=== PATIENT | female | born 1960 | race Two or more races ===

== ENCOUNTER 2017-04-06 10:52 | Emergency (ER) | payer MEDICAID ==
[~2017-04-06] VITALS: Ht 165.1 cm; Wt 116.6 kg
[2017-04-06 11:42] LABS: Basophils # (auto) 0 uL; Basophils % (auto) 0.3 % (0.0-2.0); Eosinophils # (auto) 0 uL; Eosinophils % (auto) 0.4 % (0.0-7.0); Hematocrit 43.2 % (36.0-46.0); Hemoglobin 14.9 g/dL (12.2-16.2); Lymphocytes # (auto) 0.8 uL; Lymphocytes % (auto) 16.8 % (10.0-50.0); Mean Corpuscular Hemoglobin 30.9 pg (28.0-32.0); Mean Corpuscular Hgb Conc. 34.4 g/dL (32.0-36.0); Mean Corpuscular Volume 89.6 fL (80.0-100.0); Mean Platelet Volume 8.7 fL (7.4-10.4); Monocytes # (auto) 0.5 uL; Monocytes % (auto) 11.6 % (0.0-12.0); Neutrophils # (auto) 3.3 uL; Neutrophils % (auto) 70.9 % (37.0-80.0); Platelet Count (auto) 259 10^3/uL (140-450); White Blood Cell 4.7 10^3/uL (4.4-10.8)
[2017-04-06 12:09] LABS: Albumin 3.3 g/dL (3.4-5.0); Alkaline Phosphatase 82 U/L (45-117); Anion Gap 6 (5-15); Aspartate Aminotransferase 29 U/L (15-37); BUN/Creatinine Ratio 13.9; Blood Urea Nitrogen 10 mg/dL (7-18); Carbon Dioxide 28 mmol/L (21-32); Chloride 104 mmol/L (98-107); GFR African American 108 mL/min; GFR Non-African American 89 mL/min; Glucose 92 mg/dL (74-106); Potassium 3.6 mmol/L (3.5-5.1); Sodium 138 mmol/L (136-145); Total Protein 7.8 g/dL (6.4-8.2)
[2017-04-06 13:10] LABS: Urine Bilirubin Negative (Negative); Urine Blood Negative /uL (Negative); Urine Color Yellow (Yellow); Urine Glucose Normal (Normal); Urine Ketone Negative (Negative); Urine Mucus FEW (None Seen); Urine Nitrite Negative (Negative); Urine RBC 7 /hpf (0 - 4); Urine Squamous Epithelial Cell FEW /hpf (<5)
[2017-04-06 13:26] VITALS: BP 150/83
[2017-04-06] MEDS ORDERED: ONDANSETRON ODT 4 MG TAB PO ONE (13:30)
== END 2017-04-06 14:10 | disposition home or self-care (01) ==
LOC: ER 10:52
DX: M25.552 Pain in left hip (principal); M25.512 Pain in left shoulder; R11.10 Vomiting, unspecified; M19.90 Unspecified osteoarthritis, unspecified site; I10 Essential (primary) hypertension; E03.9 Hypothyroidism, unspecified; Z87.440 Personal history of urinary (tract) infections; E66.01 Morbid (severe) obesity due to excess calories; Z68.41 Body mass index [BMI] 40.0-44.9, adult
CPT/HCPCS: 36415; 71020; 80053; 81001; 83690; 84484; 85025; 93005; 99285; Q0162

== ENCOUNTER 2023-10-14 08:32 | Emergency (ER) | payer MEDICAID, OTHER ==
[~2023-10-14] VITALS: Ht 162.6 cm; Wt 116.7 kg
[2023-10-14 09:11] LABS: Basophils # (auto) 0.1 10 ^3/uL (0-0.2); Basophils % (auto) 0.6 % (0.0-2.0); Eosinophils # (auto) 0 10 ^3/uL (0-0.8); Eosinophils % (auto) 0.1 % (0.0-7.0); Hematocrit 43.4 % (36.0-46.0); Hemoglobin 14.5 g/dL (12.2-16.2); Lymphocytes % (auto) 8.9 % (10.0-50.0); Mean Corpuscular Hgb Conc. 33.4 g/dL (32.0-36.0); Mean Corpuscular Volume 89.8 fL (80.0-100.0); Monocytes # (auto) 0.9 10 ^3/uL (0-1.3); Monocytes % (auto) 7.8 % (0.0-12.0); Neutrophils # (auto) 9.3 10 ^3/uL (1.6-8.6); Neutrophils % (auto) 82.6 % (37.0-80.0); Nucleated Red Blood Cells % 0.1 %; Red Blood Cells 4.84 10^6/uL (4.0-5.20); Red Cell Distribution Width 15.2 % (11.8-14.3); White Blood Cell 11.2 10^3/uL (4.4-10.8)
[2023-10-14 09:36] LABS: Alanine Aminotransferase 15 U/L (7-40); Albumin 4.5 g/dL (3.2-4.8); Alkaline Phosphatase 82 U/L (46-116); Anion Gap 5 (5-15); Aspartate Aminotransferase 18 U/L (13-40); BUN/Creatinine Ratio 9.3 (10.0-20.0); Bilirubin, Total 2.3 mg/dL (0.2-1.0); Blood Urea Nitrogen 9 mg/dL (9-23); Calcium 8.9 mg/dL (8.7-10.4); Carbon Dioxide 30 mmol/L (20-30); Chloride 100 mmol/L (98-107); Glucose 127 mg/dL (74-106); Potassium 3.8 mmol/L (3.5-5.1); Sodium 135 mmol/L (136-145); Total Protein 7.7 g/dL (5.7-8.2)
[2023-10-14 09:57] LABS: Urine Bacteria NONE SEEN /hpf (None Seen); Urine Blood 1+ /uL (Negative); Urine Budding Yeast FEW /hpf (None Seen); Urine Clarity HAZY (Clear); Urine Color Yellow (Yellow); Urine Mucus FEW (None Seen); Urine Protein, UAD TRACE (Negative); Urine Specific Gravity 1.016 (1.001-1.035); Urine Urobilinogen Normal (Negative); Urine WBC 51 /hpf (0 - 5)
[2023-10-14] MEDS ORDERED: SODIUM CHLORIDE 0.9% 1,000 ML IV ONE (11:00)
[2023-10-14] MEDS ORDERED: cefTRIAXone 1GM/50ML D5W 50 ML IV ONE (11:00)
[2023-10-14] MEDS ORDERED: HYDROcodone-ACET 7.5/325MG TAB PO ONE (12:00)
[2023-10-14] MEDS ORDERED: PROCHLORPERAZINE EDISYLATE 5 MG/ML 2ML VIAL IV ONE (12:00)
[2023-10-14] MEDS ORDERED: HYDR-4902 PO (12:46)
[2023-10-14] MEDS ORDERED: BACDST PO (12:46)
[2023-10-14] MEDS ORDERED: METO-281 PO (12:46)
[2023-10-14 12:58] VITALS: PULSE 83; RESP 20; O2SAT 95
[2023-10-14 13:39] VITALS: BP 152/68; PULSE 92; RESP 20; TEMP 98.2; O2SAT 95
== END 2023-10-14 13:46 | disposition home or self-care (01) ==
LOC: ER 08:32
DX: N12 Tubulo-interstitial nephritis, not specified as acute or chronic (principal); R51.9 Headache, unspecified; R53.1 Weakness; I10 Essential (primary) hypertension; Z79.899 Other long term (current) drug therapy
CPT/HCPCS: 36415; 71046; 80053; 81001; 84484; 85025; 93005; 96361; 96365; 96375; 99285; J0696; J0780; J7030

== ENCOUNTER 2024-10-19 10:17 | Emergency (ER) | payer MEDICAID, OTHER ==
[~2024-10-19] VITALS: Ht 165.1 cm; Wt 109.8 kg
[~2024-10-19 10:17] MED LIST: BACDST PO; HYDR-4902 PO; METO-281 PO
[2024-10-19] MEDS: KETOROLAC TROMETH 60MG/2ML VIAL IM ONE (11:32)
[2024-10-19] MEDS: METHOCARBAMOL 500 MG TAB PO ONE (11:33)
[2024-10-19] MEDS: HYDROcodone-ACET 5/325MG TAB PO ONE (11:34)
[2024-10-19] MEDS: ONDANSETRON ODT 4 MG TAB PO ONE (11:35)
[2024-10-19 11:45] LABS: Basophils # (auto) 0.1 10 ^3/uL (0-0.2); Basophils % (auto) 0.6 % (0.0-2.0); Eosinophils # (auto) 0.1 10 ^3/uL (0-0.8); Hematocrit 41.9 % (36.0-46.0); Hemoglobin 14.7 g/dL (12.2-16.2); Lymphocytes # (auto) 1.9 10 ^3/uL (0.4-5.4); Lymphocytes % (auto) 18.3 % (10.0-50.0); Mean Corpuscular Hemoglobin 31.8 pg (28.0-32.0); Mean Corpuscular Hgb Conc. 34.9 g/dL (32.0-36.0); Monocytes # (auto) 0.8 10 ^3/uL (0-1.3); Monocytes % (auto) 7.7 % (0.0-12.0); Neutrophils # (auto) 7.5 10 ^3/uL (1.6-8.6); Neutrophils % (auto) 72.4 % (37.0-80.0); Platelet Count (auto) 280 10^3/uL (140-450); Red Blood Cells 4.61 10^6/uL (4.0-5.20); Red Cell Distribution Width 14.5 % (11.8-14.3); White Blood Cell 10.4 10^3/uL (4.4-10.8)
[2024-10-19 11:52] LABS: Chloride 106 mmol/L (98-107)
[2024-10-19 11:53] LABS: Sodium 141 mmol/L (136-145)
[2024-10-19 11:54] LABS: Anion Gap 6 (5-15); Carbon Dioxide 29 mmol/L (20-31)
--- NOTE | 2024-10-19 11:58 | ED.PDOC ---
General HPI Comments A 63 year old female presents to the ED with a chief complaint of RT low back/flank pain onset 1 month. Patient states she began experiencing RT low back pain radiating to the right buttock about 1 month ago, went to Urgent care on 10/06/2024 and was given pain medication. She noticed pain worsened yesterday, noticed it worsens with bending forward and causes nausea. She has a past medical history of HTN, overreactive bladder, UTIs, thyroid. Denies abdominal pain, vomiting, diarrhea, fever, dysuria and hematuria. No other symptoms or modifying factors present at this time. She states she saw her primary physician yesterday, urinalysis was performed and she does not yet have the results. She usually takes Allison for pain, also has a prescription for ibuprofen, however states she has not taken either pain medication today. Chief Complaint: Flank Pain Time Seen by : 11:06 Primary Care Provider: DENIES Reviewed notes: Medications, Allergies Allergies: Coded Allergies: NO KNOWN ALLERGIES (Unverified , 04/06/17) Home Meds Active Scripts Gabapentin (Once-Daily) (Gabapentin) 300 Mg Tab, 300 MG PO TID PRN, #30 TAB prn pain Prov:WHITLEY JO MD 10/19/24 Methocarbamol (Methocarbamol) 500 Mg Tab, 1000 MG PO Q8HP PRN, #30 TAB prn back pain/muscle spasm Prov:WHITLEY JO MD 10/19/24 Sulfamethoxazole W/Trimethopri (Bactrim Ds Tablet) 1 Tab Tb, 1 TAB PO BID for 10 Days, #20 TAB Prov:LUCIANA TOBIAS MD 10/14/23 Metoclopramide Hcl (Reglan) 10 Mg Tab, 10 MG PO BID for 10 Days, #20 TAB Prov:LUCIANA TOBIAS MD 10/14/23 Hydrocodone-Acetaminophen (Hydrocodone Bitartrate/AC 5-325 mg) 1 Tab Tab, 1 TAB PO BID for 5 Days, #10 TAB Prov:LUCIANA TOBIAS MD 10/14/23 Information Source: Patient Mode of Arrival: Ambulatory Severity: Moderate Timing: Months Duration: Since onset Prehospital treatment: None Symptoms: None History of: UTI Location: (R) Flank Modifying factors: None associated signs and symptoms: Nausea, Flank Pain Past Medical History PAST MEDICAL HISTORY: HTN, Thyroid, UTI'S Past Medical History (Other): overreactive bladder Surgical History: Denies all surgeries FAMILY SERVICE ASSISTANT History: Denies all FAMILY SERVICE ASSISTANT Hx Family History Family History: Unknown Social History Smoker: Non-Smoker Alcohol: Denies ETOH Use Drugs: Denies Drug Use Lives In: Home Constitutional: denies: chills, diaphoresis, fatigue, fever, malaise, sweats, weakness, others EENTM: denies: blurred vision, double vision, ear bleeding, ear discharge, ear drainage, ear pain, ear ringing, eye pain, eye redness, hearing loss, mouth pain, mouth swelling, nasal discharge, nose bleeding, nose congestion, nose pain, photophobia, tearing, throat pain, throat swelling, voice changes, others Respiratory: denies: cough, hemoptysis, orthopnea, SOB at rest, shortness of breath, SOB with excertion, stridor, wheezing, others Cardiovascular: denies: chest pain, dizzy spells, diaphoresis, Dyspnea on exertion, edema, irregular heart beat, left arm pain, lightheadedness, palpitations, PND, syncope, others Gastrointestinal: reports: nausea; denies: abdomen distended, abdominal pain, blood streaked bowels, constipated, diarrhea, dysphagia, difficulty swallowing, hematemesis, melena, poor appetite, poor fluid intake, rectal bleeding, rectal pain, vomiting, others Genitourinary: reports: flank pain (RT ); denies: abnormal vagina bleeding, burning, dyspareunia, dysuria, frequency, hematuria, incontinence, pain, , vagina discharge, urgency, others Neurological: denies: dizziness, fainting, headache, left sided numbness, left sided weakness, numbness, paresthesia, pre-existing deficit, right sided numbness, right sided weakness, seizure, speech problems, tingling, tremors, weakness, others Musculoskeletal: denies: back pain, gout, joint pain, joint swelling, muscle pa in, muscle stiffness, neck pain, others Integumetry: denies: bruises, change in color, change in hair/nails, dryness, laceration, lesions, lumps, rash, wounds, others Allergic/Immunocompromised: denies: Difficulty Healing, Frequent Infections, Hives, Itching, others Hematologic/Lymphatic: denies: anemia, blood clots, easy bleeding, easy bruising, swollen glands, others Endocrine: denies: excessive hunger, excessive sweating, excessive thirst, excessive urination, flushing, intolerance to cold, intolerance to heat, unexplained weight gain, unexplained weight loss, others Psychiatric: denies: anxiety, bipolar disorder, depression, hopeless, panic disorder, schizophrenia, sleepless, suicidal, others All Other Systems: Reviewed and Negative Physical Exam General Appearance: No Apparent Distress HEENT: Other (Pupils symmetric, no facial asymmetry, moist mucous membranes) Neck: Full Range of Motion, Normal Inspection Respiratory: Lungs Clear, No Accessory Muscle Use, No Respiratory Distress, Normal Breath Sounds Cardiovascular: No Edema, No JVD, Regular Rate/Rhythm Breast Exam: Deferred Gastrointestinal: Non Tender, Soft Genitalia: Deferred Pelvic: Deferred Rectal: Deferred Extremities: Normal inspection, Normal range of motion, Non-tender, No pedal edema Neurologic: Alert, No Motor Deficits, Normal Affect, Normal Mood, No Sensory Deficits, Other (Pain exacerbated by bending forward) Cerebellar Function: NOT DONE Reflexes: NOT DONE Skin: Dry, Normal Color, Warm Lymphatic: NOT DONE Was a procedure done? Was a procedure done?: No Differential Diagnosis Kidney stone (Female): Strain, Urolithiasis Urinary Problem (Female): UTI Other Differential Diagnosis Musculoskeletal pain, sciatica, other lumbar radiculopathy, arthritis, among others X-Ray, Labs, Meds, VS Vital Signs Date Time Temp Pulse Resp B/P (MAP) Pulse Ox O2 Delivery O2 Flow Rate FiO2 10/19/24 13:22 98.1 98 18 123/59 (80) 95 98.1 10/19/24 11:22 84 18 132/78 (96) 98 10/19/24 11:22 84 18 98 Room Air 10/19/24 10:55 97.5 98 17 108/88 (95) 96 Lab Test 10/19/24 11:24 10/19/24 10:50 Range/Units White Blood Count 10.4 4.4-10.8 10^3/uL Red Blood Count 4.61 4.0-5.20 10^6/uL Hemoglobin 14.7 12.2-16.2 g/dL Hematocrit 41.9 36.0-46.0 % Mean Corpuscular Volume 91.0 80.0-100.0 fL Mean Corpuscular Hemoglobin 31.8 28.0-32.0 pg Mean Corpuscular Hemoglobin Concent 34.9 32.0-36.0 g/dL Red Cell Distribution Width 14.5 H 11.8-14.3 % Platelet Count 280 140-450 10^3/uL Mean Platelet Volume 8.2 6.9-10.8 fL Neutrophils (%) (Auto) 72.4 37.0-80.0 % Lymphocytes (%) (Auto) 18.3 10.0-50.0 % Monocytes (%) (Auto) 7.7 0.0-12.0 % Eosinophils (%) (Auto) 1.0 0.0-7.0 % Basophils (%) (Auto) 0.6 0.0-2.0 % Neutrophils # (Auto) 7.5 1.6-8.6 10 ^3/uL Lymphocytes # (Auto) 1.9 0.4-5.4 10 ^3/uL Monocytes # (Auto) 0.8 0-1.3 10 ^3/uL Eosinophils # (Auto) 0.1 0-0.8 10 ^3/uL Basophils # (Auto) 0.1 0-0.2 10 ^3/uL Nucleated Red Blood Cells 0.0 % Sodium Level 141 136-145 mmol/L Potassium Level 4.0 3.5-5.1 mmol/L Chloride Level 106 98-107 mmol/L Carbon Dioxide Level 29 20-31 mmol/L Anion Gap 6 5-15 Blood Urea Nitrogen 14 9-23 mg/dL Creatinine 0.88 0.550-1.02 mg/dL Glomerular Filtration Rate Calc 74 >90 mL/min BUN/Creatinine Ratio 15.9 10.0-20.0 Serum Glucose 96 74-106 mg/dL Calcium Level 10.0 8.7-10.4 mg/dL Urine Color Yellow Yellow Urine Clarity Turbid H Clear Urine pH 5.5 5.0-9.0 Urine Specific [place] 1.031 1.001-1.035 Urine Protein Trace H Negative Urine Ketones Negative Negative Urine Blood Negative Negative /uL Urine Nitrite 2+ H Negative Urine Bilirubin Negative Negative Urine Urobilinogen Normal Negative mg/dL Urine Leukocyte Esterase 3+ Negative /uL Urine RBC 4 0 - 4 /hpf Urine WBC 21 0 - 5 /hpf Urine Squamous Epithelial Cells Mod <5 /hpf Urine Bacteria None seen None Seen /hpf Urine Mucus Few None Seen Urine Glucose Normal Normal mg/dL Current Medications Medications (Trade) Dose Ordered Sig/Jose Luis Route Start Time Stop Time Status Last Admin Ketorolac Tromethamine (Toradol Injection) 60 mg ONCE ONCE IM 10/19/24 11:15 10/19/24 11:18 DC 10/19/24 11:32 Acetaminophen/ Hydrocodone Bitart (Allison 5/325MG Tab) 1 tab ONCE ONCE PO 10/19/24 11:15 10/19/24 11:18 DC 10/19/24 11:34 Methocarbamol (Robaxin) 1,000 mg ONCE ONCE PO 10/19/24 11:15 10/19/24 11:18 DC 10/19/24 11:33 Ondansetron HCl (Zofran Po) 4 mg ONCE ONCE PO 10/19/24 11:15 10/19/24 11:18 DC 10/19/24 11:35 PROCEDURE(s): LS2CT - LS SPINE WO CONTRAST REASON: R low back/buttock pain ORDER NUMBER(s): [id number], ACCESSION NUMBER(s): [id number] EXAM: CT LS SPINE WO CONTRAST INDICATION: R low back/buttock pain COMPARISON: None TECHNIQUE: Multiple axial CT images of the lumbar spine were obtained using b one algorithm. Axial and coronal reformatting was done. Bone and soft tissue windows were reviewed. Radiation Dose Information: CT Dose: CTDI volume is 38.94 mGy. Dose-length product is 1364.71 mGy*cm FINDINGS: No CT evidence of acute fracture . Minimal dextrocurvature of the lumbar spine , possibly positional. The visualized paraspinal soft tissues are grossly unremarkable. There is moderate to severe narrowing of the L5-S1 disc space. Grade 1 retrolisthesis of L5 on S1. Vacuum disc phenomenon at this level. Multilevel small anterior osteophytosis. Small posterior osteophytosis at the L5 inferior endplate. Degenerative changes of the facet joints, most prominent inferiorly. IMPRESSION: 1. No CT evidence of acute fracture or traumatic mal-alignment of the bony lumbar spine. 2. Degenerative changes as described. Radiation optimization: All CT scans at this facility use at least one of these dose optimization techniques: automated exposure control mA and/or kV adjustment per patient size (includes targeted exams where dose is matched to clinical indication) or iterative reconstruction. HS:Y X-Ray, Labs, Meds, VS Comment 63-year-old female with a history of hypertension, UTIs, thyroid disease and overactive bladder complaining of right-sided low back pain radiating to the right buttock and right lower flank. Vitals remarkable for temperature 97.5 Exam remarkable for right lumbar paraspinal muscle tenderness and exacerbation of pain with bending forward at the waist Rhythm strip independently interpreted by me: Sinus rhythm, 98, no ectopy. CT lumbar spine without contrast: CBC and basic metabolic panel unremarkable for any abnormality of acute significance UA abnormal, consistent with UTI Patient treated with the following in the ED: Toradol 60 mg IM, Allison 5/325 mg p.o., Robaxin 1 g p.o. , Rocephin 1 g IM On re-evaluation, patient states pain has improved, she is ambulating without difficulty, and vitals are stable. Hospitalization for pain control and PT/OT evaluation was considered, however patient had rapid improvement of her symptoms with treatment in the ED, and I no longer feel hospitalization is necessary. Patient has a prescription for Allison and ibuprofen. I will add Robaxin and gabapentin. She appears stable for outpatient follow-up with her primary physician for referral for outpatient spine MRI. Rx gabapentin, Robaxin, Keflex Time of 1ST Reevaluation: 11:36 Reevaluation 1ST: Unchanged Time of 2ND Reevaluation: 14:45 Reevaluation 2ND: Improved Patient Education/Counseling: Diagnosis, Treatment, Prognosis Family Education/Counseling: No Family Present Additional Information HI Data VOL/Complexity Ordered tests: LAB, CT, PHA reviewed results: CBC, UA, BMP Interpreted results: CT Discuss tx/results: patient, medical personnel Departure 1 Departure Time of Disposition: 12:30 Impression: Primary Impression: Sciatica Qualified Codes: M54.31 - Sciatica, right side Additional Impression: UTI (urinary tract infection) Qualified Codes: N39.0 - Urinary tract infection, site not specified Disposition: HOME / SELF CARE / HOMELESS Condition: Stable Additional Instructions: Blood tests were unremarkable. Your urine test was abnormal, which indicates you may have a urine infection. I have prescribed antibiotics. Your CT scan report is below, showing degenerative and arthritis type changes which may be the cause of your pain. I have prescribed medication to help with your pain. Continue taking ibuprofen and Allison as needed for pain. Follow-up with your primary doctor in 1-2 days for referral for outpatient MRI of your spine. [place] [id number] [facility] [id number] Ph: [phone] DIAGNOSTIC IMAGING Diagnostic Imaging Report : [id number] Signed PATIENT: CHAYITO MOSHER ACCT: [id number] UNIT: [id number] : 1960 LOC: ER ROOM / BED: / AGE / SEX: 63 / F ADM STATUS: REG ER SERVICE [id number] ORDERING PHYSICIAN: WHITLEY JO MD PROCEDURE(s): LS2CT - LS SPINE WO CONTRAST REASON: R low back/buttock pain ORDER NUMBER(s): [id number], ACCESSION NUMBER(s): [id number] EXAM: CT LS SPINE WO CONTRAST INDICATION: R low back/buttock pain COMPARISON: None TECHNIQUE: Multiple axial CT images of the lumbar spine were obtained using bone algorithm. Axial and coronal reformatting was done. Bone and soft tissue windows were reviewed. Radiation Dose Information: CT Dose: CTDI volume is 38.94 mGy. Dose-length product is 1364.71 mGy*cm FINDINGS: No CT evidence of acute fracture . Minimal dextrocurvature of the lumbar spine , possibly positional. The visualized paraspinal soft tissues are grossly unremarkable. There is moderate to severe narrowing of the L5-S1 disc space. Grade 1 retrolisthesis of L5 on S1. Vacuum disc phenomenon at this level. Multilevel small anterior osteophytosis. Small posterior osteophytosis at the L5 inferior endplate. Degenerative changes of the facet joints, most prominent inferiorly. IMPRESSION: 1. No CT evidence of acute fracture or traumatic mal-alignment of the bony lumbar spine. 2. Degenerative changes as described. Radiation optimization: All CT scans at this facility use at least one of these dose optimization techniques: automated exposure control mA and/or kV adjus tment per patient size (includes targeted exams where dose is matched to clinical indication) or iterative reconstruction. HS:Y ATED BY: VICTORIANO KAPOOR DO DICTATED DATE/TIME: 10/19/24 1235 e-Prescriptions Cephalexin Monohydrate (Cephalexin) 500 Mg Cap 1 CAP PO QID for 10 Days, #40 CAP Prov: WHITLEY JO MD 10/19/24 Gabapentin (Once-Daily) (Gabapentin) 300 Mg Tab 300 MG PO TID PRN, #30 TAB prn pain Prov: WHITLEY JO MD 10/19/24 Methocarbamol (Methocarbamol) 500 Mg Tab 1000 MG PO Q8HP PRN, #30 TAB prn back pain/muscle spasm Prov: WHITLEY JO MD 10/19/24 Discharged With: Relative Critical Care Note Critical Care Time?: No Stability Stability form required: No Heart Score Heart Score: Heart Score Response (Comments) Value History N/A 0 EKG N/A 0 Age N/A 0 Risk Factors N/A 0 Troponin N/A 0 Total 0 I personally scribed for WHITLEY JO MD ([email or web address]) on 10/19/24 at 11:58. Electronically submitted by Stephenie Daugherty ([email or web address]). I personally scribed for WHITLEY JO MD ([email or web address]) on 10/19/24 at 12:32. Electronically submitted by Stephenie Daugherty ([email or web address]). WHITLEY JO MD Oct 19, 2024 11:58
[2024-10-19 11:59] LABS: BUN/Creatinine Ratio 15.9 (10.0-20.0); Blood Urea Nitrogen 14 mg/dL (9-23); Glucose 96 mg/dL (74-106)
[2024-10-19] MEDS ORDERED: METH-1181 PO (12:31)
[2024-10-19] MEDS ORDERED: GABA300T4 PO (12:31)
--- NOTE | 2024-10-19 12:38 | DVH ---
EXAM: CT LS SPINE WO CONTRAST INDICATION: R low back/buttock pain COMPARISON: None TECHNIQUE: Multiple axial CT images of the lumbar spine were obtained using bone algorithm. Axial an d coronal reformatting was done. Bone and soft tissue windows were reviewed. Radiation Dose Information: CT Dose: CTDI volume is 38.94 mGy. Dose-length product is 1364.71 mGy*cm FINDINGS: No CT evidence of acute fracture . Minimal dextrocurvature of the lumbar spine , possibly positional. The visualized paraspinal soft tissues are grossly unremarkable. There is moderate to severe narrowing of the L5-S1 disc space. Grade 1 retrolisthesis of L5 on S1. Va cuum disc phenomenon at this level. Multilevel small anterior osteophytosis. Small posterior osteophy tosis at the L5 inferior endplate. Degenerative changes of the facet joints, most prominent inferiorl y. IMPRESSION: 1. No CT evidence of acute fracture or traumatic mal-alignment of the bony lumbar spine. 2. Degenerative changes as described. Radiation optimization: All CT scans at this facility use at least one of these dose optimization te chniques: automated exposure control mA and/or kV adjustment per patient size (includes targeted exa ms where dose is matched to clinical indication) or iterative reconstruction. HS:Y
[2024-10-19 12:57] LABS: Urine Bacteria None Seen /hpf (None Seen)
[2024-10-19 13:22] VITALS: BP 123/59; PULSE 98; RESP 18; TEMP 98.1; O2SAT 95
[2024-10-19 13:23] LABS: Urine Blood Negative /uL (Negative); Urine Clarity Turbid (Clear); Urine Color Yellow (Yellow); Urine Mucus FEW (None Seen); Urine Protein, UAD TRACE (Negative); Urine Specific Gravity 1.031 (1.001-1.035); Urine Urobilinogen Normal (Negative); Urine WBC 21 /hpf (0 - 5); Urine pH 5.5 (5.0-9.0)
[2024-10-19] MEDS ORDERED: cefTRIAXone W LIDOCAINE 1 GM IM IM ONE (14:45)
[2024-10-19] MEDS ORDERED: CEPH500C PO (14:47)
[2024-10-19] MEDS ORDERED: cefTRIAXone SOD 1,000 MG VL IM ONE (15:30)
== END 2024-10-19 15:29 | disposition home or self-care (01) ==
LOC: ER 10:17
DX: M54.41 Lumbago with sciatica, right side (principal); N39.0 Urinary tract infection, site not specified; I10 Essential (primary) hypertension
CPT/HCPCS: 36415; 72131; 80048; 81001; 85025; 96372; 99285; J1885; Q0162; J0696

== ENCOUNTER 2025-04-13 14:05 | Emergency (ER) | payer MEDICAID ==
[~2025-04-13] VITALS: Ht 165.1 cm; Wt 103.0 kg
[~2025-04-13 14:05] MED LIST changes: +CEPH500C PO; +GABA300T4 PO; +METH-1181 PO
[2025-04-13 14:30] VITALS: BP 129/64; PULSE 74; RESP 18; TEMP 97.9; O2SAT 96
--- NOTE | 2025-04-13 14:59 | ED.PDOC ---
Musculoskeletal HPI Comments This is a 64-year-old female that comes in with right leg pain. She complains of pain behind her knee as well is in her calf apparently she went to an urgent care earlier and they sent her here for a Doppler study. She has planned knee surgery in 1 month on that same side. Chief Complaint: Lower Extremity Time Seen by MD: 14:57 Primary Care Provider: CORTEZ Reviewed Notes: Nurses Notes, Medications, Allergies Allergies: Coded Allergies: NO KNOWN ALLERGIES (Unverified , 04/06/17) Home Meds Active Scripts Cephalexin Monohydrate (Cephalexin) 500 Mg Cap, 1 CAP PO QID for 10 Days, #40 CAP Prov:WHITLEY JO MD 10/19/24 Gabapentin (Once-Daily) (Gabapentin) 300 Mg Tab, 300 MG PO TID PRN, #30 TAB prn pain Prov:WHITLEY JO MD 10/19/24 Methocarbamol (Methocarbamol) 500 Mg Tab, 1000 MG PO Q8HP PRN, #30 TAB prn back pain/muscle spasm Prov:WHITLEY JO MD 10/19/24 Sulfamethoxazole W/Trimethopri (Bactrim Ds Tablet) 1 Tab Tb, 1 TAB PO BID for 10 Days, #20 TAB Prov:LUCIANA TOBIAS MD 10/14/23 Metoclopramide Hcl (Reglan) 10 Mg Tab, 10 MG PO BID for 10 Days, #20 TAB Prov:LUCIANA TOBIAS MD 10/14/23 Hydrocodone-Acetaminophen (Hydrocodone Bitartrate/AC 5-325 mg) 1 Tab Tab, 1 TAB PO BID for 5 Days, #10 TAB Prov:LUCIANA TOBIAS MD 10/14/23 Information Source: Patient Mode of Arrival: Wheelchair Past Medical History PAST MEDICAL HISTORY: HTN, Thyroid, UTI'S Surgical History: Denies all surgeries SPECIAL AGENT History: Denies all SPECIAL AGENT Hx Family History Family History: Unknown Social History Smoker: Non-Smoker Alcohol: Denies ETOH Use Drugs: Denies Drug Use Lives In: Home Musculoskeletal: reports: joint swelling, others (Right calf pain) Physical Exam General Appearance: No Apparent Distress HEENT: Normal ENT Inspection, PERRL/EOMI Neck: Non-Tender, Normal, Normal Inspection Respiratory: Lungs Clear, Normal Breath Sounds Cardiovascular: Normal Peripheral Pulses Breast Exam: Deferred Gastrointestinal: Non Tender, Normal Bowel Sounds Genitalia: Deferred Pelvic: Deferred Rectal: Deferred Extremities: Leg edema, Normal inspection, Normal range of motion, Swelling, Tender Neurologic: Alert, Normal Affect, Normal Mood Cerebellar Function: NOT DONE Reflexes: NOT DONE Skin: Dry, Warm Lymphatic: No Adenopathy Was a procedure done? Was a procedure done?: No Differential Diagnosis EXT Differential Diagnosis: Sprain, Dislocation X-Ray, Labs, Meds, VS Vital Signs Date Time Temp Pulse Resp B/P (MAP) Pulse Ox O2 Delivery O2 Flow Rate FiO2 04/13/25 14:30 97.9 74 18 129/64 (85) 96 97.9 04/13/25 14:30 74 18 96 Room Air 04/13/25 14:22 97.9 74 18 129/64 (85) 96 97.9 X-Ray, Labs, Meds, VS Comment Patient seen and examined by me. A Doppler study was done here which was negative for any DVT. Patient will be given a shot of Toradol for pain relief, she can follow up with her ortho surgeon as she has surgery scheduled for the next 2 3 weeks from now.. Time of 1ST Reevaluation: 15:35 Reevaluation 1ST: Improved Patient Education/Counseling: Diagnosis, Treatment, Prognosis, Need For Follow Up Family Education/Counseling: No Family Present Departure 1 Departure Time of Disposition: 15:36 Impression: Primary Impression: Right knee pain Disposition: 01 HOME / SELF CARE / HOMELESS Condition: Good Additional Instructions: Your Doppler study was normal and no blood clot found Please follow-up with your regular orthopedic doctor this week for your planned surgery Continue your current medication e-Prescriptions Ibuprofen Micronized (Ibuprofen) 600 Mg Tab 600 MG PO Q6HPRN PRN for 5 Days, #20 TAB Prov: NICK HICKEY 04/13/25 Discharged With: Self Critical Care Note Critical Care Time?: No Stability Stability form required: NICK Aguayo Apr 13, 2025 14:59
--- NOTE | 2025-04-13 15:19 | DVH ---
Right lower extremity venous duplex Clinical History: swelling, calf pain Comparison: None Findings: Duplex Doppler evaluation of the deep venous system of the right lower extremity from the common femo ral vein to the popliteal vein including color Doppler and spectral/pulsed waveform analysis was perf ormed. The common femoral vein demonstrates appropriate compressibility and waveform variability. There is compressibility/patency of the great saphenous vein at the proximal thigh. The femoral vein demonstrates appropriate compressibility and waveform variability. The deep femoral vein demonstrates appropriate compressibility and waveform variability. The popliteal vein demonstrates appropriate compressibility and waveform variability. There is normal compressibility at the tibioperoneal trunk. Impression: No right femoropopliteal venous thrombosis. If clinical concern/symptoms persist or worsen, short-interval follow-up study is suggested.
[2025-04-13] MEDS ORDERED: IBUP1TAB5 PO (15:41)
[2025-04-13] MEDS: KETOROLAC TROMETH 60MG/2ML VIAL IM ONE (16:13)
== END 2025-04-13 16:17 | disposition home or self-care (01) ==
LOC: ER 14:15
DX: M25.561 Pain in right knee (principal); I10 Essential (primary) hypertension
CPT/HCPCS: 93971; 96372; 99285; J1885